=== PATIENT | male | born 1985 | race Caucasian/White ===

== ENCOUNTER 2017-03-15 22:26 | Emergency (ER) | payer OTHER ==
--- NOTE | ~2017-03-15 | CT4 ---
[facility] A Service of [facility] RADIOLOGY TEXT RESULTS PATIENT: SCOTT SCHRADER LOCATION: [facility] : 84 UNIT #: [id number] AGE: [address]: Nikita Ruiz MD SEX: M ORDER DR: [id number] [place] [id number] [facility]. [place], [place] [address] [id number] MR#: [id number] Acc #: [id number] NAME: SCOTT SCHRADER : 1985 SEX: M STUDY DATE/TIME: 03/16/2017 1:07 UNIT: [facility] ROOM: STUDY DESCRIPTION: CT Abd and Pelv Wo Cont Attending Physician: Nikita Ruiz Ordering Physician: Harsahl Ruiz M.D. Primary Care Physician: Primary Care Physician No MEDICAL IMAGING REPORT This report is preliminary unless electronic signature is present EXAM CT abdomen and pelvis without contrast HISTORY Severe back pain for 2 days. Right lower back pain. This CT exam was performed with one or more of the following radiation dose reduction techniques: automatic exposure control, adjustment of mA and/or kV according to patient size, and iterative reconstruction. FINDINGS Axial images performed through the abdomen and pelvis without contrast. Multiplanar reconstructed images reviewed at a workstation. ABDOMEN: Lung bases unremarkable. Liver and spleen unremarkable. The gallbladder is contracted. Pancreas not well demonstrated on this noncontrast study. Kidneys and adrenal glands unremarkable. No free air or free fluid. Moderate amount of colonic gas and stool as well as a moderate amount of fluid within the stomach. Appendix is normal. Retroperitoneum unremarkable. PELVIS: Bladder and prostate appear normal. Osseous structures and soft tissues appear normal. IMPRESSION No acute intraabdominal or intrapelvic pathology. Visualized lumbar spine unremarkable with no evidence of kidney stone or obstruction. Patient does demonstrate a moderate amount of colonic stool as well as a moderate amount of gastric fluid. Dictated by... [facility] A Service of [facility] RADIOLOGY TEXT RESULTS PATIENT: SCOTT SCHRADER LOCATION: [facility] : 84 UNIT #: [id number] AGE: [address]: Nikita Ruiz MD SEX: M ORDER DR: Quinten Babcock M.D. THIS IS AN ELECTRONICALLY VERIFIED REPORT Quinten Babcock M.D. at 03/16/2017 10:06 PM Andrea TD: 03/16/2017 03:04 JOB #: [id number] MEDICAL IMAGING REPORT Page 1 of 1 COPY
[~2017-03-15 22:26] MED LIST: IBUPROFEN800 MG PO; LORTAB 5/500 TA1 TA1 PO
[2017-03-16 00:54] LABS: URINE SOURCE CLEAN CATCH
[2017-03-16 01:01] LABS: URINE APPEARANCE CLOUDY; URINE BLOOD NEG (NEG); URINE COLOR DK YELLOW; URINE GLUCOSE NEG (NEG); URINE KETONE TRACE (NEG); URINE LEUKOCYTE ESTERASE TRACE (NEG); URINE NITRATE NEG (NEG); URINE PROTEIN 2+ (NEG); URINE SPECIFIC GRAVITY 1.033 (1.003-1.035)
[2017-03-16 01:11] LABS: CULTURE INDICATED? YES; URINE BACTERIA AUWI NEG (NEGATIVE); URINE SQUAMOUS EPITHELIAL CELL OCC /[HPF]
[2017-03-16 01:24] LABS: URINE BILIRUBIN NEG (NEG)
[2017-03-16 01:25] LABS: U HYALINE CASTS AUWI 0-2 /[LPF]
[2017-03-16 01:31] LABS: BASOPHIL% 0.4 % (0-2.5); HEMATOCRIT 32.7 % (38.0-50.0); LYMPHOCYTE# 1.1 X10e3 (1.0-3.5); MEAN CELL VOLUME 77.9 FL (83-96); MEAN CORPUSCULAR HEMOGLOBIN 26.2 PG (28-34); MEAN CORPUSCULAR HGB CONC 33.6 g/dL (30-36); MEAN PLATELET VOLUME 7.5 FL (6.5-11.5); MONOCYTE# 1.1 X10e3 (0-1.0); MONOCYTE% 11.8 % (3.0-12.0); NEUTROPHIL# 6.9 X10e3 (1.5-7.1); NEUTROPHIL% 75.8 % (40-75); PLATELET COUNT 136 X10e3 (140-420); RED BLOOD COUNT 4.19 X10e (3.90-5.60); RED CELL DISTRIBUTION WIDTH 14.3 % (11.0-15.5); WHITE BLOOD COUNT 9.1 X10e3 (4.0-10.5)
[2017-03-16 01:32] LABS: DIFF IND NO
[2017-03-16 02:11] LABS: CALCIUM SERUM 8.9 mg/dL (8.4-10.2); GLOM FILT RATE Estimated 99.2 mL/min (>60)
[2017-03-18 20:45] LABS: CHLAMYDIA TRACH Not Detected (Not Detected); N GONOR Not Detected (Not Detected)
== END 2017-03-16 03:14 | disposition home or self-care (01) ==
LOC: CED 22:26
PROVIDERS: Emergency Medicine
DX: N39.0 Urinary tract infection, site not specified (principal); F17.200 Nicotine dependence, unspecified, uncomplicated; Z86.19 Personal history of other infectious and parasitic diseases; Z88.0 Allergy status to penicillin
CPT/HCPCS: 36415; 74176; 80048; 81003; 85025; 87086; 87491; 87591; 96361; 96374; 99284; J1885

== ENCOUNTER 2017-07-13 19:24 | Inpatient (IN) | payer OTHER ==
[~2017-07-13] VITALS: Ht 188 cm; Wt 73.2 kg
--- NOTE | ~2017-07-13 | EKG ---
PATIENT: SCOTT SCHRADER UNIT #: [id number] Ventricular Rate: 114 BPM Atrial Rate: 114 BPM P-R Interval: 122 ms QRS Duration: 100 ms Q-T Interval: 372 ms QTC Calculation(Bezet): 512 ms P Olney: 43 degrees Calculated R Olney: 32 degrees Calculated T Olney: -2 degrees Diagnosis Line: Sinus tachycardia Diagnosis Line: Nonspecific ST abnormality Diagnosis Line: Abnormal ECG Diagnosis Line: No previous ECGs available Diagnosis Line: Confirmed by DIXIE DEUTSCH MD ([id number]) on Diagnosis Line: 07/14/2017 10:48:45 AM INTERPRETING MD: LA NENA KUMAR
--- NOTE | ~2017-07-13 | DS ---
Unit #: [id number] #: [id number] Patient: SCOTT SCHRADER [id number] [address] [place], [place] [address] [id number] I MR#: [id number] NAME: SCOTT SCHRADER ROOM: 308 Age: 32 Sex: M Admission Date: 07/13/2017 : 1985 Discharge Date: 07/16/2017 Attending Physician: Rhett Gage M.D. Primary Care Physician: Primary Care Physician No DISCHARGE SUMMARY REASON FOR ADMISSION Fevers/chills, presumed endocarditis. HISTORY OF PRESENT ILLNESS/HOSPITAL COURSE The patient is a 32-year-old male, relatively noncompliant, who was admitted initially to [facility] over the summer of 2016 for presumed endocarditis. He is a known IV drug abuser. He also has a prior history of hepatitis C. I was not really sure if the patient had left AMA after completing IV antibiotics. However, he was readmitted secondary to fevers and chills at home. It was presumed he had endocarditis and therefore was admitted and placed on broad-spectrum IV antibiotics, and consultation was placed to ID Services. Routine laboratory studies were obtained including blood cultures, which did come back positive for MRSA 2/2. He underwent a 2D echocardiogram, which showed a large mobile vegetation over his tricuspid valve. He underwent a CT chest, noncontrast secondary to elevated creatinine. It did reveal innumerable bilateral pulmonary nodules, cavitary lesions, as well as findings consistent with septic emboli. He was treated appropriately with IV antibiotics. Also noted on the day of admission, the patient did have an elevated creatinine of approximately 3. His baseline from previous record review appeared to be closer to 0.8 in 04/2017 from [facility]. This prompted consultation with Dr. Beaver of Nephrology Services, and initial workup was started. Repeat blood cultures from 07/15/2017 did not show any acute bacterial growth. We had discussions with the patient in regard to his overall level of care and consideration was being given to either [facility] at the time of discharge or perhaps outpatient short-stay for ongoing evaluation and/or workup. During the time on 07/16/2017, the patient apparently received several phone calls, became visibly upset and elected to leave against medical advice. He was extensively counseled on his overall long-term poor prognosis if he continues on his current path, his life expectancy is likely less than 6 months. He is well aware. He was alert and oriented at that particular time. He signed appropriate paperwork for against medical advice and left [facility]. At the time of discharge, the patient's creatinine was 2.3. As mentioned above, his Unit #: [id number] #: [id number] Patient: SCOTT SCHRADER blood cultures from 07/13/2017 were positive for MRSA bacteremia, and a 2D echocardiogram did show a large mobile tricuspid valve vegetation. Current clinical diagnoses as of 07/16/2017; infective endocarditis, MRSA bacteremia, septic emboli, ongoing IV drug abuse, acute kidney injury, questionable chronic kidney disease. DISCHARGE DISPOSITION Home against medical advice. PROGNOSIS Dismal. Life expectancy likely less than 6 months. Dictated by... Elaine Gamez/malik TD: 07/19/2017 03:24 JOB #: [id number] DISCHARGE SUMMARY Page 1 of 1 X Rhett Gage MD X DISCHARGE SUMMARY
--- NOTE | ~2017-07-13 | HP ---
Unit #: [id number] #: [id number] Patient: SCOTT SCHRADER [id number] [address] [place], [place] [address] [id number] I MR#: [id number] NAME: SCOTT SCHRADER ROOM: 308 Age: 32 Sex: M Admission Date: 07/13/2017 : 1985 Attending Physician: Angle Acosta M.D. Primary Care Physician: No Primary Care Physician HISTORY AND PHYSICAL CHIEF COMPLAINT Likely endocarditis. HISTORY This 32-year-old male with hepatitis C, polysubstance abuse, and admission to [facility] for endocarditis, is admitted for likely endocarditis. Patient states that he was in his usual state of health until two weeks ago. He developed myalgias, fever, sweats, chills, anorexia, and mild dysuria. When questioning him further, he was admitted to [facility] about four months ago for what sounds to be endocarditis treated with a long course of antibiotics. He continues to abuse drugs, does not always use clean needles. He presented to this emergency department this evening with a low grade temperature, looks to be quite ill on exam and tachycardic. His labs are notable for leukocytosis, acute kidney injury, and elevated LFTs. In the ER he was bolused with a liter of normal saline, given Tylenol, and vancomycin. States that at the time of his discharge at [facility] he was taking a different antibiotic and not vancomycin, again will obtain records. PAST MEDICAL HISTORY 1. Hepatitis C. 2. Endocarditis admitted to [facility] about four months ago. 3. Polysubstance abuse. 4. Jaw fracture requiring ORIF. ALLERGIES Penicillin. HOME MEDICATIONS None. FAMILY HISTORY Negative for CAD. SOCIAL HISTORY The patient lives with his mother. He smokes one half pack per day of tobacco, does not drink alcohol. He does continue to use drugs, not always with clean needles. Urine tox screen is positive for benzos and for opiates. REVIEW OF SYSTEMS Feeling ill, weight loss, anorexia, myalgias, fever, sweats, chills, dysuria, hepatitis C, endocarditis, polysubstance abuse, above mentioned Unit #: [id number] #: [id number] Patient: SCOTT SCHRADER surgery. All other systems were reviewed and otherwise negative. PHYSICAL EXAMINATION GENERAL: Ill, thin, male. VITAL SIGNS: Temperature 99.1, pulse 126, respirations 16, blood pressure 116/63, O2 saturation is 100% on room air. HEENT: Eyes - PERRLA, extraocular muscles are intact. Pharynx with very dry mucosal membranes, edentulous. NECK: Supple without adenopathy or thyromegaly. CHEST: Diminished breath sounds but clear. CARDIAC: Tachy S1 and S2 with a systolic murmur best heard along the left lower sternal border. ABDOMEN: Bowel sounds are present, mild hepatomegaly. Mildly tender. No masses. EXTREMITIES: Without edema. Pedal pulses are diminished. Questionable splinter hemorrhage left hand. NEUROLOGIC: Patient is awake, alert and oriented. His cranial nerves are intact. He has equal strength throughout but is quite weak on exam. DIAGNOSTIC STUDIES ADMISSION LABS: Hematocrit is 34.4, white blood count is 12.4, platelet count is 131, MCV is 76, left shift is noted. INR is 1.2, PTT is 33.6. SMA 12 - glucose 115, BUN 76, creatinine 3.4, up from a BUN of 12 and creatinine of 1 in March. Sodium 126, chloride 94, CO2 20, calcium 8.3, albumin 2.5, alk phos 600, ALT 43, lactic acid 1.9 of unknown significance since patient does appear to be quite ill. Cardiac markers are negative. Urine tox screen positive for opiates and benzos. Urinalysis - positive leukocyte esterase, nitrates, protein, 3+ blood with 50-100 red cells, 100-200 white cells, 2+ bacteria noted. IMAGING STUDIES: Chest x-ray - bilateral predominantly peripheral areas of air space disease with central lucencies, could reflect cavitation or necrosis. Worse on the right and at the basis. Then apices. Main consideration would be septic emboli in patient with IV drug abuse. CARDIOLOGY STUDIES: EKG - sinus tachycardia, rate 114, nonspecific ST wave abnormalities. ASSESSMENT 1. 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 Patient does appear to be septic despite normal lactic acid level. 2. Possible UTI, rule out STD. 3. Acute kidney injury, in part secondary to dehydration. Rule out obstruction. Could also likely have glomerulonephritis from hepatitis C and current infectious process. 4. Admission to [facility] four months ago or endocarditis, will obtain records. 5. Polysubstance abuse. 6. Tobacco abuse. 7. Hepatitis C. PLANS 1. IV fluids. 2. Renal ultrasound. 3. CT scan of the chest. 4. Daptomycin given acute kidney injury and Rocephin pending cultures. 5. Obtain records from [facility]. 6. Check urine for chlamydia, gonorrhea, check RPR, check HIV. Unit #: [id number] #: [id number] Patient: SCOTT SCHRADER 7. SCDs for DVT prophylaxis. 8. CT scan of the chest. 9. Medications for opiate withdrawal. 10. Likely will need infectious disease consultation depending on above. Dictated by Elaine Doran/mark TD: 07/14/2017 06:02 JOB #: [id number] HISTORY AND PHYSICAL Page 1 of 1 X Angle Acosta MD X HISTORY AND PHYSICAL
--- NOTE | ~2017-07-13 | CT57 ---
[facility] A Service of [facility] RADIOLOGY TEXT RESULTS PATIENT: SCOTT SCHRADER LOCATION: [facility] 308- : [birth year] UNIT #: [id number] AGE: [address]: Rhett Gage MD SEX: M ORDER DR: [id number] [facility] [address]. [place], [place] [address] [id number] I MR#: [id number] Acc #: [id number] NAME: SCOTT SCHRADER : 1985 SEX: M STUDY DATE/TIME: 07/14/2017 17:59 UNIT: C3[facility] U ROOM: 308 STUDY DESCRIPTION: CT Chest Wo Cont Attending Physician: Rhett Gage M.D. Ordering Physician: Rhett Gage M.D. Primary Care Physician: No Primary Care Physician MEDICAL IMAGING REPORT This report is preliminary unless electronic signature is present EXAM CT of the chest. HISTORY Question aspiration pneumonia. Presumed endocarditis. Question emboli. Fever, aches for one week. Short of air for [address] of the chest performed without intravenous contrast. Study limited in the absence of intravenous contrast. This CT exam was performed with one or more of the following radiation dose reduction techniques: automatic exposure control, adjustment of mA and/or kV according to patient size, and iterative reconstruction. COMPARISON CT 04/21/2017. FINDINGS Visualized thyroid remarkable. No axillary adenopathy. There is a paucity of body fat in this patient and a paucity of fat in the mediastinum. There is evidence of mediastinal adenopathy. There is an 8-9 mm short axis prevascular lymph node probably unchanged from prior study. Some of the other prevascular nodes are less pronounced. There are small aortopulmonary window lymph nodes probably stable to slightly less pronounced. Configuration of the hilar regions suggests small bilateral hilar lymph nodes. Similar appearance on prior study. These nodes are likely reactive in nature given findings on the remainder of study. Trace bilateral pleural effusions. Not drainable fluid collections. There is borderline cardiac enlargement. The pericardial effusion seen on prior examination is significantly decreased in volume now only trace pericardial fluid seen. Visualized portions of liver unremarkable. The spleen is stably enlarged measuring approximately 16 cm in greatest visualized diameter. Similar appearance on prior examination. [facility] A Service of [facility] RADIOLOGY TEXT RESULTS PATIENT: SCOTT SCHRADER LOCATION: [facility] 308-01 : [birth year] UNIT #: [id number] AGE: [address]: Rhett Gage MD SEX: M ORDER DR: The visualized adrenal glands and upper renal poles are unremarkable. Visualized pancreas unremarkable. Esophagus, stomach unremarkable in visualized extent. The lungs are diffusely abnormal. Interlobular septal thickening at the lung apices. Fine linear interstitial markings in the periphery of the lungs. Findings probably reflect a degree of mild interstitial edema. There are innumerable pulmonary nodules and masses in the lungs bilaterally. All lobes are affected. Many of these show cavitary change. The number and extent of these findings are significantly increased compared to 04/21/2017. The largest cavitary mass in the right lung is in the periphery of the right lower lobe measuring 3.2 cm in diameter. The largest in the left lung is probably in the inferior lingular segment measuring 1.7 cm x 2.8 cm. Appearance, in context of presumed endocarditis, most consistent with multifocal septic emboli. As on the prior examination, many of these lesions abut the peripheral pleura and the possibility of pulmonary infarcts as a consequence of bland or septic emboli could be considered. Findings could be further evaluated with CT pulmonary angiography if it would assist in management. There are areas of dependent airspace disease at the bilateral lung bases which likely involve components of atelectasis. There is no pneumothorax. Unopacified vascular structures appear of normal caliber. The bony structures show no acute appearing abnormality. IMPRESSION 1. Innumerable bilateral pulmonary nodules and masses, majority of which demonstrate cavitation. The appearance, given the patient's stated history, most consistent with extensive septic emboli. There is no compelling evidence of aspiration pneumonia. See wireless sales representative sizes and locations of cavitary masses in body of report above. As on the study from April 2017, many of these lesions abut the peripheral pleura and the possibility of cavitary pulmonary infarcts from septic or bland emboli could be considered. Extent of at the cavitary nodules/masses significantly greater than in April of 2017. 2. Mild interstitial prominence as described above. This may reflect some degree of underlying mild interstitial edema. Only trace pleural effusions markedly decreased from prior study. 3. There is evidence of mediastinal and hilar adenopathy likely reactive in nature given pulmonary findings. Decreased pericardial effusion compared to prior study now minimal in volume. 4. Paucity of body wall and intrathoracic fat in this patient. Clear decrease in body wall fat compared to prior examination. 5. Stable splenomegaly. Dictated by... Vincenzo Solorio M.D. THIS IS AN ELECTRONICALLY VERIFIED REPORT [facility]. [facility] A Service of [facility] RADIOLOGY TEXT RESULTS PATIENT: SCOTT SCHRADER LOCATION: [facility] : 84 UNIT #: [id number] AGE: [address]: Rhett Gage MD SEX: M ORDER DR: Vincenzo Solorio M.D. at 07/15/2017 9:25 PM Marga TD: 07/15/2017 17:32 JOB #: [id number] MEDICAL IMAGING REPORT Page 1 of 1 COPY
--- NOTE | ~2017-07-13 | US77 ---
[facility] A Service of [facility] RADIOLOGY TEXT RESULTS PATIENT: SCOTT SCHRADER LOCATION: [facility] - : [birth year] UNIT #: [id number] AGE: [address]: Rhett Gage MD SEX: M ORDER DR: [id number] [facility] [address] [place], [place] [address] [id number] I MR#: [id number] Acc #: [id number] NAME: SCOTT SCHRADER : 1985 SEX: M STUDY DATE/TIME: 07/14/2017 12:31 UNIT: C3A PCU ROOM: 308 STUDY DESCRIPTION: US Kidney Bilateral Complete Attending Physician: Rhett Gage M.D. Ordering Physician: Angle Acosta M.D. Primary Care Physician: No Primary Care Physician MEDICAL IMAGING REPORT This report is preliminary unless electronic signature is present EXAM Renal ultrasound 07/14/2017 HISTORY Bilateral flank pain for 1 week. FINDINGS The right kidney measures 13.9 cm while the left kidney measures 14.3 cm in longitudinal dimensions. There is no evidence of hydronephrosis or nephrolithiasis. No cystic or solid mass lesions were seen on either kidney. There is increased renal cortical echogenicity characteristic of medical renal disease. Images of the bladder are normal. IMPRESSION 1. Bilateral increase in renal cortical echogenicity characteristic of medical renal disease. There is no evidence of hydronephrosis. 2. Images of the bladder are normal. Dictated by... Deven Lopez M.D. THIS IS AN ELECTRONICALLY VERIFIED REPORT Deven Lopez M.D. at 07/19/2017 12:01 PM EARNESTINE/luis TD: 07/14/2017 22:50 JOB #: [id number] MEDICAL IMAGING REPORT Page 1 of 1 COPY
--- NOTE | ~2017-07-13 | CO ---
Unit #: [id number] #: [id number] Patient: SCOTT SCHRADER [id number] [address] [place], [place] [address] [id number] MR#: [id number] NAME: SCOTT SCHRADER ROOM: 308 Age: 32 Sex: M Admission Date: 07/13/2017 : 1985 Attending Physician: Rhett Gage M.D. Consultation Date: 07/14/2017 CONSULTATION REPORT REASON FOR CONSULTATION Possible endocarditis. HISTORY OF PRESENT ILLNESS The patient is a 32-year-old gentleman with history of IV drug use, hepatitis C, history of methicillin-sensitive Staphylococcus aureus and bacillus bacteremia with tricuspid valve and possible mitral valve endocarditis. This was back in 04/2017. He was advised to finish 4 to 6 weeks of IV antibiotic therapy and the compliance to that is questionable. The patient is admitted with 2-week history of fevers, lower extremity weakness, loss of appetite, and is found to have 2/2 blood cultures positive for gram-positive cocci. Urine culture is pending, but urinalysis are compatible with urinary tract infection. He is in acute renal failure. Chest x-ray shows some cavitary lesions. CT scan of the chest and echo are pending. He is on daptomycin, Rocephin. Infectious Disease consultation requested for further evaluation and antibiotic management. PAST MEDICAL HISTORY 1. Hepatitis C. 2. 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 3. Substance abuse. 4. Jaw fracture requiring open reduction and internal fixation. SOCIAL HISTORY Remarkable for active IV drug use. FAMILY HISTORY Noncontributory. ALLERGIES Allergic to penicillin, reaction unknown. CURRENT MEDICATIONS List was reviewed. Antibiotics include daptomycin and Rocephin. PHYSICAL EXAMINATION GENERAL: Lying in bed, does not seem to be in any distress. VITAL SIGNS: Temperature 97.7, T-max 100.3 upon admission, pulse 81, respirations 20, blood pressure 95/57. HEENT: Unremarkable. NECK: Supple. CHEST: Clear to auscultation. Unit #: [id number] #: [id number] Patient: SCOTT SCHRADER HEART: Normal S1 and S2. ABDOMEN: Soft and nontender. EXTREMITIES: Shows no edema. DIAGNOSTIC STUDIES IMAGING STUDIES: Labs and chest x-ray as noted above. Some airspace disease with central lucencies, possibility of cavitation and necrosis. No dense infiltrates. LABORATORY RESULTS: BUN 77, creatinine 3.3. AST and ALT are normal. WBC 9.6, hemoglobin 7.9, platelets 82. HIV nonreactive. Tox screen positive for benzodiazepines and opiates. Urinalysis was leukocyte esterase positive, nitrite positive, hematuria, pyuria. Blood cultures 2/2 gram-positive cocci drawn almost an hour apart. Urine culture is pending. ASSESSMENT 1. Gram-positive bacteremia. 2. Possible urinary tract infection. 3. Acute renal failure. 4. IV drug use. 5. History of endocarditis of tricuspid valve and possible mitral valve. 6. History of methicillin-sensitive Staphylococcus aureus and bacillus bacteremia. PLAN At this time, I would go ahead and continue with daptomycin for his possible endocarditis even if he has septic pulmonary emboli that is more of a vascular phenomenon rather than parenchymal phenomena, so daptomycin should be appropriate. We will follow up on the CT scan of the chest and also going to follow up on renal ultrasound. Nephrology has been asked to see the patient as far as possibly urinary tract infection is concerned most likely secondary to gram-positive cocci, but because of possibility of gram negatives, I will go ahead and discontinue Rocephin and start him on cefepime to increase coverage pending the Gram stain and culture results. Further recommendation depending upon the course. We will follow up on the echo. I would like to thank Dr. Acosta for asking us to participate in the care of this patient. We will follow this patient along with you. Dictated by... Elaine Galvez/malik TD: 07/15/2017 13:07 JOB #: [id number] Unit #: [id number] #: [id number] Patient: SCOTT SCHRADER CONSULTATION REPORT Page 1 of 1 X Tre Velez MD CONSULTATION REPORT
--- NOTE | ~2017-07-13 | CR72 ---
[facility] A Service of [facility] RADIOLOGY TEXT RESULTS PATIENT: SCOTT SCHRADER LOCATION: [facility] : 83 UNIT #: [id number] AGE: [address]: Sanchez Valdez MD SEX: M ORDER DR: [id number] [facility] [address] [facility] [facility]. [place], [place] [address] [id number] MR#: [id number] Acc #: [id number] NAME: SCOTT SCHRADER : 1985 SEX: M STUDY DATE/TIME: 07/13/2017 20:43 UNIT: [facility] ROOM: STUDY DESCRIPTION: CR Chest Single View Portable Attending Physician: Sanchez Valdez M.D. Ordering Physician: Sanchez Valdez M.D. Primary Care Physician: Primary Care Physician No MEDICAL IMAGING REPORT This report is preliminary unless electronic signature is present EXAM Chest x-ray HISTORY Fever and weakness for 2 weeks COMMENT Single frontal portable view of the chest at 2043, 07/13/2017 COMPARISON 04/25/2017 FINDINGS Heart size is normal. There are bilateral infiltrates seen. They are more prominent peripherally and towards the bases and asymmetrically worse on the right than the left. Multiple small areas of air space disease are seen and some of these probably have central lucency, which could be central necrosis. The appearance raises concern for septic emboli or parenchymal nodules with central necrosis. Please correlate for clinical history of risk factors for septic emboli such as IV drug use. Please correlate for any history of malignancy. Please correlate for any immuno-compromised state which could result in an atypical infection. No congestive failure, pleural effusion or pneumothorax. IMPRESSION Abnormal film with bilateral predominantly peripheral areas of airspace disease with central lucencies, which could reflect cavitation or necrosis. In general, findings are asymmetrically worse to the right side than the left side and worse at bases than apices. A main consideration given age group would be septic emboli. Please correlate for risk factors such as IV drug abuse. Some other considerations would include other infectious or inflammatory diseases, typical and atypical including but [facility] A Service of [facility] RADIOLOGY TEXT RESULTS PATIENT: SCOTT SCHRADER LOCATION: [facility] #: [id number] : [birth year] UNIT #: [id number] AGE: [address]: Sanchez Valdez MD SEX: M ORDER DR: not limited to fungal disease. Please correlate for any malignancy history since metastatic disease could have this appearance. STAT * RESULT Dictated by... Nadine Dial M.D. THIS IS AN ELECTRONICALLY VERIFIED REPORT Nadine Dial M.D. at 07/13/2017 10:44 PM SAC/to TD: 07/13/2017 21:04 JOB #: [id number] MEDICAL IMAGING REPORT Page 1 of 1 COPY
--- NOTE | ~2017-07-13 | CO ---
Unit #: [id number] #: [id number] Patient: SCOTT SCHRADER [id number] [address] [place], [place] [address] [id number] MR#: [id number] NAME: SCOTT SCHRADER ROOM: 308 Age: 32 Sex: M Admission Date: 07/13/2017 : 1985 Attending Physician: Rhett Gage M.D. Consultation Date: 07/14/2017 CONSULTATION REPORT REASON FOR CONSULTATION Renal insufficiency. Thank you very much for asking me to see this patient in consultation. HISTORY OF PRESENT ILLNESS This patient is a 32-year-old male with history of heroin abuse in the past, who has been in both [facility] as well as one of the [facility], his last [employer] was from 04/20/2017 where he left [employer]. 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 Although to note, he did have normal renal function at that time. The patient presented here with fevers, severe weakness hurting all over. He was admitted with possible sepsis with a temperature of 102.3. Since the admission, he was yesterday noted to have a creatinine of 3.4, it was 3.3 today. Because of this, I was asked to see the patient. The patient again noted to have normal renal function in the past. He was admitted and started on antibiotics including Cubicin and Maxipime here. We were asked to see the patient. The patient states he has been taking several Aleve at home every day, also decreased p.o. intake over the last few days. His last heroin use was approximately 2 days prior to admission. PAST MEDICAL HISTORY Has a history of pneumonia, history of again sepsis, history of endocarditis of the tricuspid valve with septic emboli, questionable history of diskitis in the past, history of hepatitis C in the past. ALLERGIES He is allergic to penicillin. SOCIAL HISTORY He still smokes cigarettes. He still does IV heroin. Denies cocaine. Denies any alcohol. CURRENT MEDICATIONS Include Cubicin, Maxipime, Neurontin, Florastor, methocarbamol, Ultram, Zofran, and Bentyl. FAMILY HISTORY Noncontributory. REVIEW OF SYSTEMS He has had fevers. No visual problems. No sinus problems. No Unit #: [id number] #: [id number] Patient: SCOTT SCHRADER hemoptysis. No neck pain or neck stiffness. He has had intermittent chest discomfort and intermittent shortness of breath. He has had some nausea, but no significant vomiting. He has had decreased p.o. intake. He denies any urinary symptoms, states he is still urinating. He denies any lower extremity swelling. No recent seizures, strokes, or skin rashes. PHYSICAL EXAMINATION GENERAL: He is alert. VITAL SIGNS: Temperature is 102.3 T-max, his pulse is anywhere from 81 to 126, blood pressure 95 to 129 with the diastolic 50 to 77. HEENT: He is normocephalic and atraumatic. Pupils are equal, round, and reactive to light. Extraocular muscles are intact. Hearing appears to be normal. Mouth is very dry. No erythema. No exudate. NECK: Supple. No adenopathy. CARDIAC: He has a regular rhythm with a 2/6 systolic ejection murmur. No rubs were heard. LUNGS: Fairly clear bilaterally. ABDOMEN: Bowel sounds positive. Nontender. Soft. No masses were felt. No hepato-organomegaly noted. EXTREMITIES: He has no lower extremity swelling. He has no evidence of peripheral emboli. Pulses are intact in upper and lower extremities. JOINTS: No joint pain or joint swelling. SKIN: He has some tattoos, but no acute rashes. : Deferred. DIAGNOSTIC STUDIES LABORATORY RESULTS: Sodium is 129, potassium is 3.3, chloride is 100, bicarb is 18, BUN and creatinine 77 and 3.2, glucose of 112, calcium 7.5, albumin is 1.9, alkaline phosphatase is 392, AST is 48, ALT is 33. Lactic acid 1.9. INR is 1.2. CPK is less than 5. Hemoglobin 7.9 today down from 11.2, platelets 82,000 down from 604160, white count is 9600. HIV test is negative. UA showed nitrite positive, 1+ protein, 50 to 100 rbc's, 100 to 200 wbc's, 2+ bacteria. Blood culture so far growing out gram-positive cocci. IMAGING STUDIES: Chest x-ray showed possible cavitary lesions consistent with emboli. ASSESSMENT AND PLAN 1. Acute renal failure. The patient with increased BUN and creatinine from normal on the previous tests. I would like to check a bladder scan to rule out urinary retention post-void residual. I would like to check renal ultrasound as well due to his acute renal failure. Certainly he has multifactorial possibilities of his acute renal failure includes his acute tubular necrosis from sepsis versus hypovolemia versus possible postinfectious glomerulonephritis versus other. The patient does have history of hepatitis C. We will check serum complements. Also again endocarditis, he could have some sort of postinfectious glomerulonephritis. I would like to go ahead and check urine sodium, urine eosinophils, random urine protein to creatinine ratio. Again, he also is having decreased platelets, I suspect it is related to sepsis. We will check a haptoglobin, LDH, retic count. Check his CBC with differential. Certainly if there is evidence of hemolysis or his platelets worsen, then we may need to consider having Hematology see him to rule out TTP/HUS. Although again at this point in time, I think it is probably related to the sepsis, but again if things worsen, we will have to consider this diagnosis. Depending, we will continue fluids, but Unit #: [id number] #: [id number] Patient: SCOTT SCHRADER change to half-normal with 1.5 amps of bicarb at 125 mL an hour. Follow output depending on how he does and depending on what further workup and treatment. 2. Hyponatremia. The patient with low sodium was 126 yesterday 129 today. Certainly it is probably hypovolemic hyponatremia secondary to decrease intake as well as potentially acute renal failure. We will check TSH level. We will also check an a.m. cortisol level, check urine sodium and urine osmolarity. We will not put him on a p.o. fluid restriction he had at this time. 3. Gram positives in the blood. Again, he probably has recurrent endocarditis, possible septic emboli, etc. Further workup per primary and Infectious Disease. Echocardiogram was done this morning and is pending. 4. Thrombocytopenia as mentioned above. 5. IV heroin abuse. Dictated by.Jed Beaver M.D. ROBB/malik TD: 07/15/2017 13:20 JOB #: [id number] CONSULTATION REPORT Page 1 of 1 X Tien Beaver MD X CONSULTATION REPORT
[2017-07-13 20:54] LABS: BASOPHIL# 0.2 X10e3 (0-0.3); BASOPHIL% 1.3 % (0-2.5); EOSINOPHIL% 0.1 % (0.0-7.0); HEMATOCRIT 34.4 % (38.0-50.0); HEMOGLOBIN 11.2 gm/dL (13.0-16.0); LYMPHOCYTE# 0.3 X10e3 (1.0-3.5); LYMPHOCYTE% 2.8 % (17.0-45.0); MEAN CELL VOLUME 76.2 FL (83-96); MEAN CORPUSCULAR HEMOGLOBIN 24.9 PG (28-34); MEAN CORPUSCULAR HGB CONC 32.6 g/dL (30-36); MEAN PLATELET VOLUME 8.3 FL (6.5-11.5); MONOCYTE# 0.5 X10e3 (0-1.0); MONOCYTE% 3.9 % (3.0-12.0); NEUTROPHIL# 11.4 X10e3 (1.5-7.1); NEUTROPHIL% 91.9 % (40-75); PLATELET COUNT 131 X10e3 (140-420); RED BLOOD COUNT 4.52 X10e (3.90-5.60); RED CELL DISTRIBUTION WIDTH 18.4 % (11.0-15.5); WHITE BLOOD COUNT 12.4 X10e3 (4.0-10.5)
[2017-07-13 20:56] LABS: DIFF IND NO
[2017-07-13 21:08] LABS: INR 1.2; PARTIAL THROMBOPLASTIN TIME 33.6 SECONDS (23.5-31.3); PROTHROMBIN TIME (PATIENT) 13.4 SECONDS (10.0-11.7)
[2017-07-13 21:08] LABS: POC - CKMB <1.0 ng/mL (0.0-7.9); POC - TROPONIN <0.05 ng/mL (<=0.05)
[2017-07-13 21:15] LABS: URINE SOURCE CLEAN CATCH
[2017-07-13 21:22] LABS: ALBUMIN SERUM 2.5 g/dL (3.5-5.0); ALKALINE PHOSPHATASE 600 U/L (32-92); ALT (SGPT) 43 U/L (10-40); AST (SGOT) 42 U/L (10-42); BILIRUBIN, DIRECT 0.6 mg/dL (0.0-0.2); BILIRUBIN,INDIRECT 0.9 mg/dL (0.0-0.9); BILIRUBIN,TOTAL 1.5 mg/dL (0.2-2.0); BLOOD UREA NITROGEN 76 mg/dL (9-23); BUN/CREATININE RATIO 22.35; CALCIUM SERUM 8.3 mg/dL (8.4-10.2); CARBON DIOXIDE 20 mmol/L (22-31); CHLORIDE 94 mmol/L (100-111); CPK (CREATINE PHOSPHOKINASE) <5 IU/L (36-174); CREATININE SERUM 3.4 mg/dL (0.6-1.4); GLOM FILT RATE Estimated 22.4 mL/min (>60); GLUCOSE FASTING 115 mg/dL (70-110); LIPASE 23 U/L (22-51); MAGNESIUM 2.1 mg/dL (1.6-3.0); POTASSIUM 3.5 mmol/L (3.5-5.1); PROTEIN TOTAL SERUM 6.9 g/dL (6.0-8.3); SODIUM 126 mmol/L (135-145)
[2017-07-13 21:25] LABS: URINE APPEARANCE CLOUDY; URINE BILIRUBIN NEG (NEG); URINE BLOOD 3+ (NEG); URINE COLOR YELLOW; URINE GLUCOSE NEG (NEG); URINE KETONE NEG (NEG); URINE LEUKOCYTE ESTERASE 3+ (NEG); URINE NITRATE POS (NEG); URINE PH 5.5 (5-8); URINE PROTEIN 1+ (NEG); URINE UROBILINOGEN 0.2 MG/DL (NEG)
[2017-07-13 21:27] LABS: CULTURE INDICATED? YES; URBCS1 AUWI 50-100 /[HPF] (0-2); URINE BACTERIA AUWI 2+ (NEGATIVE); URINE SQUAMOUS EPITHELIAL CELL NONE SEEN /[HPF]; UWBCS1 AUWI 100-200 (0-5)
[2017-07-13 21:40] LABS: AMPHETAMINE NEG (NEG); BARBITURATES NEG (NEG); BENZODIAZEPINES POS (NEG); COCAINE NEG (NEG); MARIJUANA NEG (NEG); OPIATES POS (NEG); TRICYCLIC ANTIDEPRESSANTS NEG (NEG); U METHADONE NEG (NEG)
[2017-07-13 21:57] LABS: POC - CKMB <1.0 ng/mL (0.0-7.9); POC - TROPONIN <0.05 ng/mL (<=0.05)
[2017-07-14 08:20] LABS: MEAN CELL VOLUME 75.2 FL (83-96); MEAN CORPUSCULAR HEMOGLOBIN 25.9 PG (28-34); MEAN CORPUSCULAR HGB CONC 34.4 g/dL (30-36); MEAN PLATELET VOLUME 7.9 FL (6.5-11.5); RED BLOOD COUNT 3.05 X10e (3.90-5.60); RED CELL DISTRIBUTION WIDTH 17.8 % (11.0-15.5); WHITE BLOOD COUNT 9.6 X10e3 (4.0-10.5)
[2017-07-14 08:24] LABS: ALBUMIN SERUM 1.7 g/dL (3.5-5.0); BILIRUBIN,TOTAL 1.2 mg/dL (0.2-2.0); BUN/CREATININE RATIO 23.33; CALCIUM SERUM 7.5 mg/dL (8.4-10.2); CREATININE SERUM 3.3 mg/dL (0.6-1.4); GLOM FILT RATE Estimated 23.2 mL/min (>60); POTASSIUM 3.3 mmol/L (3.5-5.1); PROTEIN TOTAL SERUM 4.9 g/dL (6.0-8.3)
[2017-07-14 08:56] LABS: HEMOGLOBIN 7.9 gm/dL (13.0-16.0)
[2017-07-14 20:19] LABS: OSMOLALITY,URINE 224 mOsmo/kg (250-900)
[2017-07-14 20:29] LABS: CREATININE,RANDOM URINE 31 mg/dL; SODIUM URINE RANDOM 30 mmol/L; TOTAL PROTEIN,RANDOM URINE 25 mg/dl (<10)
[2017-07-15 05:09] LABS: BASOPHIL% 0.2 % (0-2.5); DIFF IND NO; EOSINOPHIL% 0.3 % (0.0-7.0); HEMATOCRIT 24.1 % (38.0-50.0); HEMOGLOBIN 8.1 gm/dL (13.0-16.0); LYMPHOCYTE# 0.6 X10e3 (1.0-3.5); LYMPHOCYTE% 4.7 % (17.0-45.0); MEAN CELL VOLUME 75.5 FL (83-96); MEAN CORPUSCULAR HEMOGLOBIN 25.5 PG (28-34); MEAN CORPUSCULAR HGB CONC 33.7 g/dL (30-36); MONOCYTE# 0.9 X10e3 (0-1.0); MONOCYTE% 6.4 % (3.0-12.0); NEUTROPHIL% 88.4 % (40-75); PLATELET COUNT 121 X10e3 (140-420); RED BLOOD COUNT 3.19 X10e (3.90-5.60); RED CELL DISTRIBUTION WIDTH 18.5 % (11.0-15.5); WHITE BLOOD COUNT 13.6 X10e3 (4.0-10.5)
[2017-07-15 05:48] LABS: ALBUMIN SERUM 1.7 g/dL (3.5-5.0); CALCIUM SERUM 7.6 mg/dL (8.4-10.2); GLOM FILT RATE Estimated 26.1 mL/min (>60); MAGNESIUM 1.9 mg/dL (1.6-3.0); POTASSIUM 4.2 mmol/L (3.5-5.1); PROTEIN TOTAL SERUM 5.4 g/dL (6.0-8.3)
[2017-07-16 08:40] LABS: HEMATOCRIT 24.9 % (38.0-50.0); HEMOGLOBIN 8.3 gm/dL (13.0-16.0); MEAN CORPUSCULAR HEMOGLOBIN 25.1 PG (28-34); MEAN CORPUSCULAR HGB CONC 33.4 g/dL (30-36); MEAN PLATELET VOLUME 7.3 FL (6.5-11.5); RED BLOOD COUNT 3.32 X10e (3.90-5.60); RED CELL DISTRIBUTION WIDTH 18.5 % (11.0-15.5); WHITE BLOOD COUNT 17.2 X10e3 (4.0-10.5)
[2017-07-16 09:14] LABS: ALBUMIN SERUM 1.6 g/dL (3.5-5.0); BILIRUBIN,TOTAL 0.9 mg/dL (0.2-2.0); BUN/CREATININE RATIO 25.65; CALCIUM SERUM 7.6 mg/dL (8.4-10.2); CREATININE SERUM 2.3 mg/dL (0.6-1.4); POTASSIUM 4.1 mmol/L (3.5-5.1); PROTEIN TOTAL SERUM 5.3 g/dL (6.0-8.3); URIC ACID 7.1 mg/dL (2.6-7.2)
[2017-07-18 07:29] LABS: CHLAMYDIA TRACH Not Detected (Not Detected); N GONOR Not Detected (Not Detected)
[2017-07-19 08:25] LABS: COMPLEMENT C3 122 mg/dL (90-180); COMPLEMENT C4 29 mg/dL (16-47)
== END 2017-07-16 14:45 | disposition left against medical advice (07) | DRG 288 ==
LOC: CED 19:24 → C3A PCU 23:00 → CEDOF 23:00 → C3A PCU 07-14 01:29 → CEDOF 07-14 01:29 → C3A PCU 07-14 01:29
PROVIDERS: Emergency Medicine; Family Medicine; Internal Medicine; Internal Medicine Nephrology
PROC: B24BZZZ Ultrasonography of Heart with Aorta (ICD-10-PCS; principal; 2017-07-14)
DX: I33.0 Acute and subacute infective endocarditis (principal); I26.90 Septic pulmonary embolism without acute cor pulmonale; N17.9 Acute kidney failure, unspecified; E87.1 Hypo-osmolality and hyponatremia; D69.6 Thrombocytopenia, unspecified; E87.2 Acidosis; N39.0 Urinary tract infection, site not specified; B95.62 Methicillin resistant Staphylococcus aureus infection as the cause of diseases classified elsewhere; F11.10 Opioid abuse, uncomplicated; N18.9 Chronic kidney disease, unspecified; B19.20 Unspecified viral hepatitis C without hepatic coma; F17.200 Nicotine dependence, unspecified, uncomplicated; D64.9 Anemia, unspecified; Z88.0 Allergy status to penicillin
CPT/HCPCS: 36415; 71010; 71250; 76770; 80048; 80053; 80076; 80307; 81003; 82533; 82550; 82553; 82570; 83010; 83605; 83615; 83690; 83735; 83935; 84100; 84156; 84300; 84443; 84484; 84550; 85025; 85027; 85044; 85610; 85730; 86160; 86592; 87040; 87077; 87086; 87088; 87186; 87491; 87591; 87806; 89190; 93005; 93306; 96365; 96366; 99291; J0692; J0696; J0712; J0878; J3370